=== PATIENT | male | born 1955 | race Caucasian/White ===

== ENCOUNTER 2016-12-13 21:24 | Inpatient (IN) | payer BC ==
[~2016-12-13] VITALS: Ht 170.2 cm; Wt 98.9 kg
[~2016-12-13 21:24] MED LIST: ADULT LOW DOSE81 M1 PO; AMARYL2 MG PO; AMARYL4 MG PO; AMOXICILLIN500 MG PO; ASPIR 8181 M1 PO; ASPIR-LOW81 MG PO; ASPIRIN EC325 MG PO; CARDIZEM60 MG PO; CELECOXIB200 MG PO; CIPRO500 MG PO; COUMADIN5 MG PO; CRESTOR10 MG PO; CYCLOBENZAPRINE10 MG PO; DOCUSATE SODIU100 MG PO; DOK PLUS TABLE1 EACH PO; ENDOCET 5-3251 EACH PO; FIORICET 50-301 EACH PO; FIORICET,ESG1 TABLET PO; FISH OIL 1,0001 EAC7 PO; FISH OIL 1,001000 M1 PO; FORTAMET1000 M1 PO; HUMALOG KW200 UNIT/1 SC; IRON325 MG PO; JANUVIA100 MG PO; LEVEMIR FL100 UNITS/ SC; LEVEMIR100 UNIT/1 SC; NAPROSYN500 MG PO; NAPROXEN500 MG PO; NOVOLOG 10100 UNITS/ SC; OXYCONTIN10 MG PO; PERCOCET 5/31 TABLET PO; PRAVACHOL40 MG PO; PREVACID30 MG PO; SYMBICORT60 INHALA1 IH; TESSALON PERLE100 MG PO; TRESIBA FL200 UNIT/1 SC; TRULICITY0.75 MG/0. SC; ZESTORETIC 10-1 EAC1 PO
[2016-12-14 06:07] VITALS: BP 156/87
[2016-12-14 06:09] LABS: POINT-OF-CARE METER ID UU14174212
[2016-12-14 09:54] LABS: POINT-OF-CARE METER ID UU13113675; POINT-OF-CARE USER ID 515036437
[2016-12-14 10:35] VITALS: BP 144/87
[2016-12-14 11:48] LABS: POINT-OF-CARE METER ID UU13113712
[2016-12-14 13:00] VITALS: BP 155/78
[2016-12-14 13:28] LABS: POINT-OF-CARE METER ID UU13113712
[2016-12-14 15:48] VITALS: BP 126/79
[2016-12-14 16:24] LABS: POINT-OF-CARE METER ID UU13113712
[2016-12-14 19:49] VITALS: BP 133/76
[2016-12-14 21:27] LABS: POINT-OF-CARE METER ID UU13113712
[2016-12-15] VITALS (7 sets, daily range): BP systolic 120–172; BP diastolic 76–91
[2016-12-15 05:37] LABS: HEMATOCRIT 35.1 % (38.0-50.0); MCV 91.2 FL (86-99)
[2016-12-15 05:57] LABS: ANION GAP 7 MEQ/L (2-14); CHLORIDE 100 MEQ/L (99-109); GFR ESTIMATE (CALCULATED) > 59 mL/min/; GLUCOSE 171 mg/dL (70-99); POTASSIUM 4.2 MEQ/L (3.7-5.4); SAMPLE HEMOLYSIS CHECK 0; SAMPLE ICTERIC CHECK 0; SAMPLE LIPEMIA CHECK 0; SODIUM 133 MEQ/L (136-147); UREA NITROGEN (BUN) 14 mg/dL (9-23)
[2016-12-15 08:02] LABS: POINT-OF-CARE METER ID UU13113712
[2016-12-15 11:38] LABS: POINT-OF-CARE METER ID UU13113712
[2016-12-15 16:10] LABS: POINT-OF-CARE METER ID UU13113712
[2016-12-15 21:17] LABS: POINT-OF-CARE METER ID UU13113712
[2016-12-16 04:30] VITALS: BP 141/74
[2016-12-16 06:29] LABS: MCV 90.7 FL (86-99)
[2016-12-16 07:38] LABS: POINT-OF-CARE METER ID UU13113712
[2016-12-16] MEDS ORDERED: BENADRYL25 MG PO (08:56)
[2016-12-16] MEDS ORDERED: BISACODYL5 MG PO (09:01)
[2016-12-16] MEDS ORDERED: OXYCODONE HCL5 MG PO (09:02)
[2016-12-16] MEDS ORDERED: ELIQUIS2.5 MG PO (09:02)
[2016-12-16] MEDS ORDERED: OXYCONTIN10 MG PO (09:02)
[2016-12-16] MEDS ORDERED: CELECOXIB200 MG PO (09:02)
[2016-12-16 11:56] LABS: POINT-OF-CARE METER ID UU13113712
[2016-12-16 12:07] VITALS: BP 151/67
== END 2016-12-16 13:43 | DRG 470 ==
LOC: ENRESERV 21:24 → 2SOUTH 12-14 05:33 → 3WEST 12-14 05:33 → 2SOUTH 12-14 11:59 → 3WEST 12-15 07:43
PROVIDERS: Orthopaedic Surgery
PROC: 0SRC0J9 Replacement of Right Knee Joint with Synthetic Substitute, Cemented, Open Approach (ICD-10-PCS; principal; 2016-12-14)
DX: M17.11 Unilateral primary osteoarthritis, right knee (principal); M25.361 Other instability, right knee; J44.9 Chronic obstructive pulmonary disease, unspecified; I10 Essential (primary) hypertension; E11.9 Type 2 diabetes mellitus without complications; G43.909 Migraine, unspecified, not intractable, without status migrainosus; K21.9 Gastro-esophageal reflux disease without esophagitis; M81.0 Age-related osteoporosis without current pathological fracture; Z82.49 Family history of ischemic heart disease and other diseases of the circulatory system; Z83.3 Family history of diabetes mellitus; Z96.642 Presence of left artificial hip joint; Z96.652 Presence of left artificial knee joint; Z87.891 Personal history of nicotine dependence
CPT/HCPCS: 80048; 82948; 85014; 85018; C1713; J0131; J0690; J1170; J1815; J1885; J2250; J2405; J2795; J7030; J7050; J7120